=== PATIENT | male | born 1950 | race Caucasian/White ===

== ENCOUNTER 2017-08-27 09:31 | Emergency (ER) | payer MEDICARE, BC ==
[2017-08-27] MEDS ORDERED: ACETAMINOPHEN 325 MG TAB PO ONE (09:56)
--- NOTE | 2017-08-27 09:59 | Emergency Department Record ---
History of Present Illness - General Chief Complaint: Fall Injury Stated Complaint: FALL/RIB PAIN Time Seen by Provider: 08/27/17 09:53 Source: Patient Mode of Arrival: Ambulatory Limitations: No limitations - History of Present Illness Initial Comments: The patient fell out of bed 2 days ago directly hitting a radio with his R rib area. He has been having pain since. There is no L sided Cp, SOB, HARRIS, or AP. He denies any head injury or headache and has been eating and drinking normally. The patient states he only has pain with bending and lifting. MD Complaint: Fall Onset/Timin -: Days(s) Fall From: Out of bed When Fall Occurred: # Days [employer] SURFACE Fall Witnessed: Yes, by family Place Fall Occurred: Home Loss of Consciousness: None Prolonged Down Time?: No Symptoms Prior to Fall: None Location: Chest Severity: Moderate Severity scale (1-10): 7 Quality: Sharp, Stabbing Associated Symptoms: Denies - [place] Coma Scale Eye Response: (4) Open spontaneously Motor Response: (6) Obeys commands Verbal Response: (5) Oriented Roberto Total: 15 - Related Data Home Medications Medication Instructions Recorded Confirmed Last Taken Digoxin [Digoxin] 125 mcg PO DAILY 08/27/17 08/27/17 08/27/17 Furosemide [Lasix] 20 mg PO DAILY 08/27/17 08/27/17 08/27/17 Potassium Chloride 10 meq PO DAILY 08/27/17 08/27/17 08/27/17 Previous Rx's Medication Instructions Recorded Acetaminop W/ Codeine 300/30Mg 1 tab PO Q6H #20 tab 08/27/17 [Tylenol #3] Allergies Allergy/AdvReac Type Severity Reaction Status Date / Time No Known Drug Allergies Allergy Verified 08/27/17 09:41 Travel Screening - Travel/Exposure Within Last 30 Days Have you traveled within the last 30 days?: No - Travel/Exposure Within Last Year Have you traveled outside the [place] in the last year?: No - Additonal Travel Details Have you been exposed to anyone with a communicable illness?: No - Travel Symptoms Symptom Screening: None Review of Systems Constitutional: Denies: Chills, Fever Eyes: Denies: Eye discharge ENT: Denies: Congestion Respiratory: Denies: Cough, Dyspnea Past Medical History - SOCIAL HISTORY Smoking Status: Never smoker Alcohol Use: None Drug Use: None - RESPIRATORY Hx Respiratory Disorders: Yes Hx Bronchitis: Yes - CARDIOVASCULAR Hx Cardio Disorders: Yes Hx Cardiac Cath: Yes Hx Chest Pain: Yes Hx Hypertension: Yes Hx Irregular Heartbeat: Yes - NEURO Hx Neuro Disorders: No - GI Hx GI Disorders: Yes Hx Diverticulitis: Yes Hx Reflux: Yes - Hx Genitourinary Disorders: No - ENDOCRINE Hx Endocrine Disorders: No - MUSCULOSKELETAL Hx Musculoskeletal Disorders: No - PSYCH Hx Psych Problems: Yes Hx Depression: Yes - HEMATOLOGY/ONCOLOGY Hx Hematology/Oncology Disorders: No Family Medical History Any Significant Family History?: Yes Hx Cancer: Mother Hx Diabetes: Father Hx Heart Disease: Father Hx HTN: Father, Mother Hx Liver Disease: Father Physical Exam - General General Appearance: Alert, Oriented x3, Cooperative, No acute distress - Head Head exam: Atraumatic, Normocephalic, Normal inspection - Eye Eye exam: Normal appearance, PERRL - Neck Neck exam: Normal inspection, Full ROM. negative: Tenderness - Respiratory Respiratory exam: Normal lung sounds bilaterally, Chest wall tenderness (There is R lateral mid rib tenderness but NO bruising, swelling, or erythema.). negative: Respiratory distress - Cardiovascular Cardiovascular Exam: Regular rate, Normal rhythm, Normal heart sounds - GI/Abdominal GI/Abdominal exam: Soft, Normal bowel sounds. negative: Tenderness - Extremities Extremities exam: Normal inspection, Full ROM, Normal capillary refill. negative: Tenderness - Neurological Neurological exam: Alert, Normal gait. negative: Abnormal gait, Motor sensory deficit Course Vital Signs 08/27/17 09:47 Temperature 98.3 F Pulse Rate 80 Respiratory 18 Rate Blood Pressure 119/82 Pulse Ox 95 - Reevaluation(s) Reevaluation #1: The patient is doing very well at this time. He presently denies any pain or discomfort. I did explain to him that there COULD be a fx in the 9th rib but it is not clear to the Rad. He is to take Tylenol or Tylenol # 3 and see his PCP next week. 08/27/17 10:57 Medical Decision Making - Data Complexity MDM Data: X-Ray Ordered and/or Reviewed - Radiology Data Radiology results: Report reviewed (R ribs: Possible acute nondisplaced fx distal R 9th rib.) Disposition Disposition: Discharge Clinical Impression: Fractured rib Qualifiers: Encounter type: initial encounter Rib fracture type: single rib Fracture type: closed Laterality: right Qualified Code(s): S22.31XA - Fracture of one rib, right side, initial encounter for closed fracture Disposition: Home, Self-Care Condition: (1) Good Instructions: Rib Fracture (ED) Additional Instructions: Please take Tylenol or Tylenol # 3 for pain. Please see your PCP for recheck next week. Return to the ER if worse. Prescriptions: Acetaminop W/ Codeine 300/30Mg [Tylenol #3] 1 tab PO Q6H #20 tab Forms: Patient Portal Access Time of Disposition: 11:00 Quality - Quality Measures Quality Measures: N/A - Blood Pressure Screening View Details: Yes Does Patient Have Any of the Following: No Blood Pressure Classification: Pre-Hypertensive BP Reading Systolic Measurement: 128 Diastolic Measurement: 77 Screening for High Blood Pressure: < Pre-Hypertensive BP, F/U Documented > [ [id number]] Pre-Hypertensive Follow-up Interventions: Referral to alternative/primary care provider.
--- NOTE | 2017-08-29 11:37 | RADIOLOGY REPORT ---
EXAM: RIBS, RIGHT W/PA CHEST HISTORY: FELL FROM STANDING. RIGHT LATERAL RIB PAIN. COMPARISON: Chest x-ray 06/11/16. ENCOUNTER: Initial. TECHNIQUE: PA view of the chest and four oblique views of the right ribs. FINDINGS: Sternal wires are present. The lungs are clear. The cardiac silhouette is moderately enlarged. Diaphragm is unremarkable. Questionable nondisplaced fracture anterior right ninth rib end on one image. IMPRESSION: 1. CARDIOMEGALY. OTHERWISE, NO ACUTE INTRATHORACIC PROCESS. 2. ACUTE NONDISPLACED FRACTURE ANTERIOR RIGHT NINTH RIB END. JOB NUMBER: [id number] MTDD
== END 2017-08-27 11:20 | disposition home or self-care (01) ==
LOC: ER 09:31
DX: S22.31XA Fracture of one rib, right side, initial encounter for closed fracture (principal); I10 Essential (primary) hypertension; Z87.891 Personal history of nicotine dependence; W06.XXXA Fall from bed, initial encounter; Y92.009 Unspecified place in unspecified non-institutional (private) residence as the place of occurrence of the external cause
CPT/HCPCS: 99283

== ENCOUNTER 2018-06-17 05:59 | Day surgery (SDC) | payer MEDICARE, BC ==
[2018-06-17] MEDS ORDERED: PROPOFOL 10 MG/ML VIAL IV ONE (06:00)
[2018-06-17] MEDS ORDERED: NEOMYCIN/POLY./DEXAM OPTH OINT OPTH ONE (06:00)
[2018-06-17] MEDS ORDERED: TETRACAINE HCL 0.5% 15 ML OPTH BTL OPTH ONE (06:00)
[2018-06-17] MEDS ORDERED: LIDOCAINE 2% MDV (20MG/ML) 20ML VIAL IV ONE ×2 (06:00)
[2018-06-17] MEDS ORDERED: EPINEPHRINE 1 MG/ML AMPUL SQ ONE (06:00)
[2018-06-17] MEDS ORDERED: CIPROFLOXACIN HCL 0.0015 GM, PHENYLEPHRINE HCL 0.05 GM, KETOROLAC TROMETHAMINE 0.000625 GM MC ONE ×5 (14:00)
--- NOTE | 2018-06-17 15:47 | OP NOTE CHAMES ---
DATE OF PROCEDURE: 06/17/18 PREOPERATIVE DIAGNOSIS: Nuclear sclerotic cataract, left eye. POSTOPERATIVE DIAGNOSIS: Nuclear sclerotic cataract, left eye. OPERATION: Phacoemulsification of cataractous lens with implantation of intraocular lens. LENS IMPLANT USED: Mendoza Model PCB00 + 20.5 diopters. COMPLICATIONS: None. PROCEDURE IN DETAIL: Following a retrobulbar and facial block, the patient was prepped and draped in the usual fashion for eye surgery. A lid speculum was placed in the left eye after which a 2.4 mm tunnel wound was placed at the temporal limbus and dissected into clear cornea. A paracentesis was placed at 2 oclock hours to the left and right of the initial incision and the chamber deepened with Viscoelastic. The keratome was then used to enter the anterior chamber after which the continuous circular capsulorrhexis was accomplished without difficulty using a bent needle and a Utrata forceps. Hydrodissection and hydrodelineation of the lens was performed after which the nucleus of the lens was removed using the Phaco handpiece in the [id number] technique. The residual cortical material was irrigated and aspirated from the eye after which the bag and chamber were re-examined. The bag was re-inflated with Viscoelastic and the intraocular lens injected into the capsular bag where it centered well. The Viscoelastic was then copiously irrigated and aspirated from the eye after which the temporal tunnel wound and paracentesis were hydrated and the wounds were examined. They were noted to be watertight. The lid speculum was removed from the eye and the eye patched and shielded. The patient was transferred to the recovery room in satisfactory condition and given an appointment to be reexamined in the clinic later today or as directed by Dr. Sommers. [facility]BER: [id number] [facility]
== END 2018-06-17 08:36 | disposition home or self-care (01) ==
LOC: SUR 05:59
PROVIDERS: ATTEND Ophthalmology
DX: H25.12 Age-related nuclear cataract, left eye (principal); I48.91 Unspecified atrial fibrillation; Z79.01 Long term (current) use of anticoagulants; I10 Essential (primary) hypertension; E78.00 Pure hypercholesterolemia, unspecified; I25.10 Atherosclerotic heart disease of native coronary artery without angina pectoris
CPT/HCPCS: J0171

== ENCOUNTER 2018-07-01 05:55 | Day surgery (SDC) | payer MEDICARE, BC ==
[2018-07-01] MEDS ORDERED: PROPOFOL 10 MG/ML VIAL IV ONE (05:56)
[2018-07-01] MEDS ORDERED: LIDOCAINE 2% MDV (20MG/ML) 20ML VIAL IV ONE (05:56)
[2018-07-01] MEDS ORDERED: TETRACAINE HCL 0.5% 15 ML OPTH BTL OPTH ONE (05:56)
[2018-07-01] MEDS ORDERED: CARBACHOL 1.5 ML VIAL OPTH ONE (05:56)
[2018-07-01] MEDS ORDERED: CIPROFLOXACIN HCL 0.0015 GM, PHENYLEPHRINE HCL 0.05 GM, KETOROLAC TROMETHAMINE 0.000625 GM MC ONE ×5 (15:30)
--- NOTE | 2018-07-01 22:12 | Operative Note ---
DATE OF PROCEDURE: 07/01/18. PREOPERATIVE DIAGNOSIS: Nuclear sclerotic cataract, right eye. POSTOPERATIVE DIAGNOSIS: Nuclear sclerotic cataract, right eye. OPERATION: Phacoemulsification of cataractous lens with implantation of intraocular lens. LENS IMPLANT USED: Mendoza Model PCB00 + 21.0 diopters. COMPLICATIONS: None. PROCEDURE IN DETAIL: Following a retrobulbar and facial block, the patient was prepped and draped in the usual fashion for eye surgery. A lid speculum was placed in the right eye after which a 2.4 mm tunnel wound was placed at the temporal limbus and dissected into clear cornea. A paracentesis was placed at 2 o'clock hours to the left and right of the initial incision and the chamber deepened with Viscoelastic. The keratome was then used to enter the anterior chamber after which the continuous circular capsulorrhexis was accomplished without difficulty using a bent needle and a Utrata forceps. Hydrodissection and hydrodelineation of the lens was performed after which the nucleus of the lens was removed using the Phaco handpiece in the [id number] technique. The residual cortical material was irrigated and aspirated from the eye after which the bag and chamber were re-examined. The bag was re-inflated with Viscoelastic and the intraocular lens injected into the capsular bag where it centered well. The Viscoelastic was then copiously irrigated and aspirated from the eye after which the temporal tunnel wound and paracentesis were hydrated and the wounds were examined. They were noted to be watertight. The lid speculum was removed from the eye and the eye patched and shielded. The patient was transferred to the recovery room in satisfactory condition and given an appointment to be reexamined in the clinic later today or as directed by Dr. Sommers. J[facility]BER: [id number] [facility]
== END 2018-07-01 08:34 | disposition home or self-care (01) ==
LOC: SUR 05:55
PROVIDERS: ATTEND Ophthalmology
DX: H25.11 Age-related nuclear cataract, right eye (principal); I10 Essential (primary) hypertension; Z79.01 Long term (current) use of anticoagulants; E78.00 Pure hypercholesterolemia, unspecified; I48.2 Chronic atrial fibrillation; Z95.1 Presence of aortocoronary bypass graft

== ENCOUNTER 2018-09-30 08:53 | Day surgery (SDC) | payer MEDICARE, BC ==
[2018-09-30] MEDS ORDERED: PROPOFOL 10 MG/ML VIAL IV ONE (08:54)
[2018-09-30] MEDS ORDERED: LIDOCAINE 2% MDV (20MG/ML) 20ML VIAL IV ONE (08:54)
--- NOTE | 2018-10-01 08:00 | Operative Note ---
DATE OF SURGERY: 09/30/18 OPERATION: COLONOSCOPY with cold snare polypectomy x4 and hemoclip application to sigmoid anastomosis polypectomy site. PREOPERATIVE DIAGNOSIS: Polyp history and followup. POSTOPERATIVE DIAGNOSES: 1. Colon polyps. 2. Mildly erythematous anastomosis in the sigmoid resection area. PROCEDURE: After informed consent was obtained from the patient, he was placed in the left lateral decubitus position in the endoscopy suite, sedated and monitored by the department of anesthesia. Digital rectal examination was unremarkable. A well-lubricated [id number] colonoscope was inserted into the rectum and advanced to the cecum. Preparation quality was good. The cecum and cecal bulb were unremarkable other than a 4-5 mm sessile polyp which was removed with a cold snare. Minimal bleeding was noted. The remainder of the cecum, ascending colon, transverse colon, and descending colon were unremarkable. There was an obviously foreshortened sigmoid colon due to the patient's previous sigmoid resection. At the resection, there appeared to be a semi-pedunculated polyp which was removed in piecemeal fashion with a cold polypectomy snare. Minimal bleeding was noted but this persisted. As a result, a hemoclip was applied to the site, which provided hemostasis. There were two 3-4 mm rectal polyps removed with a cold snare. Minimal bleeding was noted. The polyps were retrieved without difficulty. J-turn views of the anorectum were unremarkable. The endoscope was straightened, the rectal ampulla deflated, and the endoscope was removed. RECOMMENDATIONS: The patient should resume his medications and diet. He will require repeat colonoscopy in 3-5 years pending tissue histology. As always, thank you for allowing me to participate in the healthcare of your patients. CC: CURTIS VILLEGAS D.O. ZAC
== END 2018-09-30 10:55 | disposition home or self-care (01) ==
LOC: HOP 08:53
PROVIDERS: ATTEND Internal Medicine Gastroenterology
DX: Z12.11 Encounter for screening for malignant neoplasm of colon (principal); Z86.010 Personal history of colon polyps; D12.0 Benign neoplasm of cecum; D12.8 Benign neoplasm of rectum; K52.89 Other specified noninfective gastroenteritis and colitis; I48.91 Unspecified atrial fibrillation; I10 Essential (primary) hypertension; E78.00 Pure hypercholesterolemia, unspecified; R60.9 Edema, unspecified